=== PATIENT | male | born 1990 | race Caucasian/White ===

== ENCOUNTER 2019-10-15 20:46 | Inpatient (IN) | payer MEDICAID ==
[~2019-10-15] VITALS: Ht 175.3 cm; Wt 86.2 kg
[2019-10-15 20:00] VITALS: BP 112/67
[2019-10-15] MEDS ORDERED: ACETAMINOPHEN ES 500 MG TABLET PO ONE (22:00)
[2019-10-15] MEDS ORDERED: ACETAMINOPHEN ES 500 MG TABLET ONE (22:25)
[2019-10-15 22:35] LABS: BASOPHILS # (AUTO) 0.1 /CMM (0.0-0.2); BASOPHILS % (AUTO) 0.4 % (0.0-2.0); HEMATOCRIT 39 % (39-51); HEMOGLOBIN 13.4 g/dL (13.5-17.5); LYMPHOCYTES # (AUTO) 2.4 /CMM (0.8-4.8); LYMPHOCYTES % (AUTO) 19.5 % (20.0-44.0); MEAN CORPUSCULAR HGB CONC 34 g/dl (31.0-36.0); MEAN CORPUSCULAR VOLUME 89 fL (80-96); MONOCYTES # (AUTO) 1.1 /CMM (0.1-1.30); MONOCYTES % (AUTO) 8.9 % (2.0-12.0); NEUTROPHILS # (AUTO) 8.8 /CMM (1.8-8.9); NEUTROPHILS % (AUTO) 70.2 % (43.0-81.0); PLATELET COUNT (AUTO) 237 /CMM (150-450); RED BLOOD CELL COUNT(AUTO) 4.41 MIL/uL (4.5-6.0); WHITE BLOOD COUNT (AUTO) 12.5 K/uL (4.3-11.0)
[2019-10-15] MEDS ORDERED: VANCOMYCIN 1 GM in IV D5W 250 ML IV STA (22:54)
[2019-10-15 22:57] LABS: CALCIUM, SERUM 8.7 mg/dL (8.5-10.1); CARBON DIOXIDE 30 mmol/L (21-32); CHLORIDE 101 mmol/L (98-107); CREATININE 0.9 mg/dL (0.6-1.3); GLUCOSE 91 mg/dL (74-106); POTASSIUM 3.2 mmol/L (3.5-5.1); SODIUM SERUM 139 mmol/L (136-145); UREA NITROGEN, BLOOD 14 mg/dL (7-18)
[2019-10-15] MEDS ORDERED: LIDOCAINE 1%-EPI 1:100,000 20 ML VIAL ONE (22:59)
[2019-10-15] MEDS ORDERED: Z GUARD REMEDY 2 OZ OINT TP PRN (23:00)
[2019-10-15] MEDS ORDERED: MAG HYDROX/AL HYDROX/SIMETH 30 ML UDC PO PRN (23:00)
[2019-10-15] MEDS ORDERED: ACETAMINOPHEN 325 MG TABLET PO PRN (23:00)
[2019-10-15] MEDS ORDERED: TEMAZEPAM 15 MG CAPSULE PO PRN (23:00)
[2019-10-15] MEDS ORDERED: HYDROCODONE/APAP 5/325MG 1 EACH TABLET PO PRN (23:00)
[2019-10-15] MEDS ORDERED: MAGNESIUM HYDROXIDE 30 ML UDC PO PRN (23:00)
[2019-10-15] MEDS ORDERED: ONDANSETRON HCL/PF 4 MG/2 ML VIAL IVP PRN (23:00)
[2019-10-15 23:06] LABS: ALCOHOL, BLOOD < 3 mg/dL (0-0)
[2019-10-15] MEDS ORDERED: IOHEXOL-300 100 ML VIAL IV ONE (23:10)
[2019-10-15] MEDS ORDERED: CT SWABBABLE VALVE TRANS SET 1 EA INFUS.SET MC ONE (23:10)
[2019-10-15] MEDS ORDERED: IV NS 0.9% 250 ML IV ONE (23:10)
[2019-10-15] MEDS ORDERED: VANCOMYCIN 2 GM in IV NS 0.9% 500 ML IV ONE (23:30)
[2019-10-15] MEDS ORDERED: VANCOMYCIN 1 GM VIAL ONE (23:48)
[2019-10-16] MEDS ORDERED: PIPERACILLIN /TAZOBACTAM 3.375 G VIAL IV ONE ×2 (01:19→03:20)
[2019-10-16 01:20] VITALS: BP 112/67
[2019-10-16] MEDS: ZOSYN IVPB 3.375 G in IV D5W 50ml IV SCH ×2 (01:27→06:28)
[2019-10-16] MEDS: IV NS 0.9% 1,000 ML IV PRN ×2 (01:29→13:18)
[2019-10-16] MEDS ORDERED: POTASSIUM CHLORIDE 20 MEQ TAB.PRT.SR PO ONE (01:30)
[2019-10-16] MEDS ORDERED: PIPERACILLIN /TAZOBACTAM 3.375 G in IV D5W 50 ML IV SCH (05:00)
[2019-10-16 06:22] LABS: BASOPHILS % (AUTO) 0.4 % (0.0-2.0); EOSINOPHILS % (AUTO) 2.1 % (0.0-6.0); HEMATOCRIT 39 % (39-51); HEMOGLOBIN 13.1 g/dL (13.5-17.5); LYMPHOCYTES # (AUTO) 2.1 /CMM (0.8-4.8); LYMPHOCYTES % (AUTO) 19.2 % (20.0-44.0); MEAN CORPUSCULAR HGB CONC 34 g/dl (31.0-36.0); MEAN CORPUSCULAR VOLUME 90 fL (80-96); MONOCYTES # (AUTO) 1.2 /CMM (0.1-1.30); MONOCYTES % (AUTO) 10.9 % (2.0-12.0); NEUTROPHILS # (AUTO) 7.5 /CMM (1.8-8.9); NEUTROPHILS % (AUTO) 67.4 % (43.0-81.0); PLATELET COUNT (AUTO) 221 /CMM (150-450); RED BLOOD CELL COUNT(AUTO) 4.34 MIL/uL (4.5-6.0); WHITE BLOOD COUNT (AUTO) 11.1 K/uL (4.3-11.0)
[2019-10-16 06:51] LABS: CALCIUM, SERUM 8.2 mg/dL (8.5-10.1); CREATININE 0.7 mg/dL (0.6-1.3); MAGNESIUM 2.2 mg/dL (1.8-2.4); PHOSPHORUS 4.6 mg/dL (2.5-4.9); POTASSIUM 3.8 mmol/L (3.5-5.1)
[2019-10-16 08:00] VITALS: BP 118/65
[2019-10-16] MEDS ORDERED: FEE PK DOSING 1 MIN EA MC ONE (08:19)
[2019-10-16] MEDS: VANCOMYCIN 1.25 GM in IV D5W 250 ML IV SCH ×2 (09:26→16:37)
[2019-10-16] MEDS: MORPHINE SULFATE INJ 2 MG/ML DISP.SYRIN IV PRN ×2 (09:36→16:39)
[2019-10-16] MEDS ORDERED: PIPERACILLIN /TAZOBACTAM 3.375 G in IV D5W 100 ML IV SCH (13:00)
[2019-10-16 16:20] VITALS: BP 112/69
[2019-10-16] MEDS ORDERED: SULF1TAB48 PO (16:26)
[2019-10-17] MEDS ORDERED: VANCOMYCIN 1.25 GM in IV D5W 250 ML IV SCH (09:00)
== END 2019-10-16 20:00 | disposition home or self-care (01) | DRG 710 ==
LOC: ER 20:49 → MEDSG2 22:17
PROVIDERS: ADMIT Nurse Practitioner Acute Care; ATTEND Internal Medicine
PROC: 0J9H0ZZ Drainage of Left Lower Arm Subcutaneous Tissue and Fascia, Open Approach (ICD-10-PCS; principal; 2019-10-16)
DX: A41.9 Sepsis, unspecified organism (principal); E87.6 Hypokalemia; F17.210 Nicotine dependence, cigarettes, uncomplicated; L03.114 Cellulitis of left upper limb; F11.10 Opioid abuse, uncomplicated; L02.414 Cutaneous abscess of left upper limb
CPT/HCPCS: 36415; 73201-TC; 80048-TC; 80305; 83735-TC; 84100-TC; 85025-TC; 87040-TC; 87070-TC; 87081-TC; A6253; A6403; A6407; G0378; G0480; J2270; J2543; J3370; J3490; J7030; J7040; J7050; J7060; Q9967